=== PATIENT | male | born 1960 | race Caucasian/White ===

== ENCOUNTER 2018-12-08 13:18 | Outpatient (CLI) | payer OTHER ==
[2014-04-05 13:21] VITALS: BP 112/70
--- NOTE | 2018-12-08 18:00 | Diagnostic Imaging Report ---
FREDIS DURAN [facility] [id number] [facility].[address] [address] Report Submission Date: Dec 08, 2018 1:56:12 PM LODE MINER Patient Study Name: VIKRAM DURAN Date: Dec 08, 2018 1:15:45 PM LODE MINER Modality Type: DX Gender: M Description: UPPER EXTREMITY : 60 Institution: [facility] Physician: FREDIS DURAN Examination: Plain film right hand History: RT HAND PAIN AND SWELLING X 2 MONTHS POST SHOULDER SURGERY (Hx) Comparison exams: None available Findings: 3 views of the right hand demonstrates articular degenerative changes. Widening of scapholunate space. No dislocation. Impression: Articular degenerative changes. Scapholunate widening - consider dedicated wrist imaging to further evaluate. Electronically signed on Dec 08, 2018 1:56:12 PM LODE MINER by: Rajeev COHEN
== END 2018-12-08 14:00 ==
LOC: RAD 13:18
PROVIDERS: ATTEND Family Medicine
DX: M24.141 Other articular cartilage disorders, right hand (principal); M79.641 Pain in right hand
CPT/HCPCS: 73130